=== PATIENT | male | born 1975 | race Caucasian/White ===

== ENCOUNTER 2023-07-28 12:31 | Emergency (ER) | payer BC ==
[2023-07-28] MEDS ORDERED: Sodium Chloride 0.9% 10 ML Syringe FLUSH PRN (12:52)
[2023-07-28] MEDS: Labetalol 20 MG/4 ML Syringe IVPUSH ONE (13:06)
[2023-07-28 13:14] LABS: BASOPHILS PERCENT AUTO 0.8 % (0.3-3.8); EOSINOPHILS PERCENT AUTO 0.8 % (0.1-6.8); HEMOGLOBIN 15.9 g/dL (12.9-17.7); LYMPHOCYTES ABSOLUTE AUTO 0.8 x10-3/uL (0.5-4.5); LYMPHOCYTES PERCENT AUTO 13.4 % (15.8-45.3); MEAN CORPUSCULAR HEMOGLOBIN 34.5 pg (27.0-33.3); MEAN CORPUSCULAR HGB CONC 34.7 g/dL (28.7-35.3); MEAN CORPUSCULAR VOLUME 99.4 fL (80.8-98.7); MEAN PLATELET VOLUME 7.3 fL (6.7-11.0); MONOCYTES ABSOLUTE AUTO 0.5 x10-3/uL (0.0-1.2); MONOCYTES PERCENT AUTO 8.7 % (5.5-15.2); NEUTROPHILS ABSOLUTE AUTO 4.6 x10-3/uL (1.7-6.9); NEUTROPHILS PERCENT AUTO 76.3 % (40.3-71.8); PLATELET COUNT,PLT 219 x10(3)uL (117-477); RED BLOOD CELL COUNT 4.62 x10(6)uL (3.90-5.90); RED CELL DISTRIBUTION WIDTH 13.6 % (12.4-15.0)
[2023-07-28 13:18] LABS: ALANINE AMINOTRANSFERASE,ALT 61 U/L (12-36); ALKALINE PHOSPHATASE 77 IU/L (56-112); ASPARTATE AMNIOTRANSFERASE,AST 55 IU/L (5-25); BILIRUBIN TOTAL 0.8 mg/dL (0.1-1.3); BLOOD UREA NITROGEN,BUN 14 mg/dL (7-18); BUN/CREATININE RATIO 17.5 (9-20); CALCIUM 9.4 mg/dL (8.6-10.2); CARBON DIOXIDE,CO2 27 mmol/L (21-32); CHLORIDE,CL 97 mmol/L (100-110); CREATININE 0.8 mg/dL (0.70-1.30); ESTIMATED GFR 111 mL/min (>60); GLUCOSE RANDOM 106 mg/dL (80-116); POTASSIUM,K 3.9 mmol/L (3.5-5.3); PROTEIN TOTAL,TP 8.2 g/dL (6.0-8.0); SODIUM,NA 137 mmol/L (135-145)
[2023-07-28 13:25] LABS: TROPONIN I 51.4 pg/mL (4.0-60.3)
[2023-07-28 13:49] LABS: INFLUENZA A NAA NEGATIVE (NEGATIVE); INFLUENZA B NAA NEGATIVE (NEGATIVE); RESPIRATORY SYNCYTIAL VIR NAA NEGATIVE (NEGATIVE)
[2023-07-28 13:50] LABS: CORONAVIRUS COVID-19 NAA NEGATIVE (NEGATIVE)
[2023-07-28] MEDS: amLODIPine 10 MG Tab PO STA (14:15)
[2023-07-28] MEDS: hydrALAZINE 20 MG/ML SDV IVPUSH ONE (14:20)
[2023-07-28] MEDS: LORazepam 2 MG/ML SDV IVPUSH ONE (14:30)
== END 2023-07-28 15:31 | disposition home or self-care (01) ==
LOC: FB.ED 12:31
DX: I16.9 Hypertensive crisis, unspecified (principal); F17.210 Nicotine dependence, cigarettes, uncomplicated; Z79.899 Other long term (current) drug therapy
CPT/HCPCS: 0241U; 36415; 71045; 80053; 83880; 84484; 85025; 93005; 93010; 96374; 96375; 99284; 99284-25; A9270-GY; J0360; J1920; J2060